=== PATIENT | male | born 1975 | race Caucasian/White ===

== ENCOUNTER 2019-02-13 21:27 | Emergency (ER) | payer OTHER ==
[2019-02-13 23:23] LABS: Absolute Lymphocytes (CBC) 0.5 K/uL (0.7-4.9); Basophils % 0.2 % (0-1.3); Eosinophils % 0.7 % (0-4.4); Hematocrit 46.2 % (39.6-49.0); MPV 7.9 fL (7.6-11.3); Monocytes % 5.9 % (3.3-12.3); RBC Red Blood Cell Count 5.14 M/uL (4.33-5.43)
[2019-02-13] MEDS ORDERED: ONDANSETRON 4 MG/2 ML VIAL ONE (23:37)
[2019-02-13] MEDS ORDERED: MAGNE/ALUM HYDROXD 30 ML UCUP ONE (23:37)
[2019-02-13] MEDS ORDERED: LIDOCAINE VISCOUS 2% SOLN 15 ML UDC ONE (23:37)
[2019-02-13 23:39] LABS: ALT/SGPT 44 U/L (12-78); AST/SGOT 25 U/L (15-37); Alkaline Phosphatase 143 U/L (45-117); BUN Blood Urea Nitrogen 15 mg/dL (7-18); Bicarbonate 27 mmol/L (21-32); Bilirubin Direct 0.2 mg/dL (0-0.2); Bilirubin Total 0.6 mg/dL (0.2-1.0); Glucose Level 102 mg/dL (74-106); Lipase 124 U/L (73-393); Potassium 3.9 mmol/L (3.5-5.1); Protein, Total 7.2 g/dL (6.4-8.2); Sodium Level 138 mmol/L (136-145); Troponin (Emerg Dept Use Only) < 0.02 ng/mL (0.0-0.045)
[2019-02-14 00:12] LABS: Blood Morphology Comment NOT SEEN (NOT SEEN); Platelet Estimate ADEQ
[2019-02-14] MEDS ORDERED: FAMOTIDINE 20 MG/2 ML VIAL IV ONE (01:01)
--- NOTE | 2019-02-14 01:30 | ER ---
Nurse's Notes [facility] Name: Calvin Carvalho Age: 43 yrs Sex: Male : 1975 Arrival Date: 02/13/2019 Time: 21:30 Bed 26 Private MD: Diagnosis: Unspecified abdominal pain;Fatty (change of) liver, not elsewhere classified Presentation: 02/13 21:38 Presenting complaint: Patient states: Heart burn that began about 1600 today; Complaint lp1 of nausea, headache; States he has "flare-ups like this". Transition of care: patient was not received from another setting of care. Onset of symptoms was February 13, 2019 at 16:00. Risk Assessment: Do you want to hurt yourself or someone else? Patient reports no desire to harm self or others. Initial Sepsis Screen: Does the patient meet any 2 criteria? No. Patient's initial sepsis screen is negative. Does the patient have a suspected source of infection? No. Patient's initial sepsis screen is negative. Care prior to arrival: None. 21:38 Method Of Arrival: Ambulatory lp1 21:38 Acuity: VIRAJ 3 lp1 Triage Assessment: 21:44 General: Appears uncomfortable, Behavior is appropriate for age. Pain: Complains of lp1 pain in epigastric area Pain currently is 6 out of 10 on a pain scale. Quality of pain is described as burning. GI: Reports nausea. Historical: - Allergies: 21:41 No Known Allergies; lp1 - Home Meds: 21:41 None [Active]; lp1 - PMHx: 21:41 None; lp1 - PSHx: 21:41 None; lp1 - Immunization history:: Adult Immunizations up to date. - Social history:: Smoking status: Patient/guardian denies using tobacco. - Ebola Screening: : No symptoms or risks identified at this time. Screenin:44 Abuse screen: Denies threats or abuse. Denies injuries from another. Nutritional lp1 screening: No deficits noted. Tuberculosis screening: No symptoms or risk factors identified. Fall Risk None identified. Assessment: 23:29 General: Appears in no apparent distress. comfortable, Behavior is calm, cooperative. mg2 Pain: Complains of pain in abdomen and epigastric area Pain does not radiate. Pain currently is 8 out of 10 on a pain scale. Quality of pain is described as aching, Pain began gradually. Neuro: Level of Consciousness is awake, alert, obeys commands, Oriented to person, place, time, situation. Cardiovascular: Capillary refill < 3 seconds Patient's skin is warm and dry. Respiratory: Airway is patent Respiratory effort is even, unlabored, Respiratory pattern is regular, symmetrical. GI: Bowel sounds present X 4 quads. Abd is soft and non tender. GI: Reports lower abdominal pain, upper abdominal pain, epigastric pain, nausea. : No signs and/or symptoms were reported regarding the genitourinary system. EENT: No signs and/or symptoms were reported regarding the EENT system. Derm: Skin is intact, is healthy with good turgor, Skin is pink, warm \\T\\ dry. normal. Musculoskeletal: Circulation, motion, and sensation intact. Capillary refill < 3 seconds. 02/14 00:48 Reassessment: abdominal pain reported. provider informed and ordered meds. mg2 01:45 Reassessment: Patient appears in no apparent distress at this time. Patient is alert, lp1 oriented x 3, equal unlabored respirations, skin warm/dry/pink. Patient states feeling better. Patient states symptoms have improved. Vital Signs: 02/13 21:41 BP 115 / 72; Pulse 112; Resp 18; Temp 99.1(O); Pulse Ox 98% on R/A; Weight 113.4 kg lp1 (R); Height 6 ft. 4 in. (193.04 cm); Pain 6/10; 22:55 BP 125 / 76 LA (auto/lg); Pulse 100; Temp 98.7; Pulse Ox 97% on R/A; Pain 7/10; jp3 23:33 BP 126 / 80; Pulse 98; Resp 18; Temp 99.4; Pulse Ox 100% on R/A; mg2 02/14 00:24 BP 130 / 78; Pulse 95; Resp 17; Temp 98.5; Pulse Ox 97% on R/A; Pain 4/10; mg2 01:45 BP 117 / 66; Pulse 81; Resp 18; Pulse Ox 97% on R/A; Pain 3/10; lp1 02/13 21:41 Body Mass Index 30.43 (113.40 kg, 193.04 cm) lp1 ED Course: 02/13 21:30 Patient arrived in ED. es 21:41 Triage completed. lp1 21:41 Arm band placed on right wrist. lp1 22:25 [facility] How[facility] 22:25 Kevin Lipscomb MD is Attending Physician. [facility] 22:28 Eric Mckeon, RN is Primary Nurse. mg2 22:56 Bed in low position. Call light in reach. Pillow given. Verbal reassurance given. jp3 23:16 No provider procedures requiring assistance completed. Inserted saline lock: 20 gauge lp1 in right antecubital area, using aseptic technique. Blood collected. 23:45 Radiology exam delayed due to lab results not completed at this time. (BUN/Creatinine). 02/14 00:[address] via wheelchair. 00:09 CT completed. Patient tolerated procedure well. 00:14 Patient moved back from CT. 00:40 CT Abd/Pelvis - IV Contrast Only In Process Unspecified. EDMS 01:29 Larry Mckeon MD is Referral Physician. [facility] 01:45 IV discontinued, No redness/swelling at site. Pressure dressing applied. lp1 Administered Medications: 02/13 23:29 Drug: Zofran 4 mg Route: IVP; Site: right antecubital; mg2 23:55 Follow up: Response: No adverse reaction; Marked relief of symptoms mg2 23:29 Drug: GI Cocktail without - (Maalox Suspension 30 ml, Lidocaine Liquid 2 % 15 mg2 ml) Route: PO; 23:55 Follow up: Response: No adverse reaction; Marked relief of symptoms mg2 02/14 00:47 Drug: Pepcid 20 mg Route: IVP; Site: right antecubital; mg2 01:46 Follow up: Response: Marked relief of symptoms lp1 Outcome: :29 Discharge ordered by . [facility] 01:46 Discharged to home ambulatory. lp1 01:46 Condition: good 01:46 Discharge instructions given to patient, Instructed on discharge instructions, follow up and referral plans. medication usage, Demonstrated understanding of instructions, follow-up care, medications, Prescriptions given X 1. 01:46 Patient left the ED. lp1 Signatures: Dispatcher [employer] EDMS Jan Howell PA PA [facility] Fariba Murray Guillermo Mcleod Cinthia Barnett, RN RN lp1 Eric Mckeon, RN RN mg2 Zen Burgos jp3 Corrections: (The following items were deleted from the chart) 00:48 00:24 BP 130 / 78; Pulse 95bpm; Resp 8bpm; Pulse Ox 97% RA; Temp 98.5F; Pain 4/10; mg2 mg2
--- NOTE | 2019-02-14 01:31 | EDPHYS ---
Physician Documentation [facility] Name: Calvin Carvalho Age: 43 yrs Sex: Male : 1975 Arrival Date: 02/13/2019 Time: 21:30 Bed 26 Private MD: ED Physician Kevin Lipscomb HPI: 02/13 22:58 This 43 yrs old Male presents to ER via Ambulatory with complaints of jmm Abdominal Problem, Nausea. 22:58 The patient presents with abdominal pain in the epigastric area. Onset: The jmm symptoms/episode began/occurred gradually, today. The symptoms do not radiate. Associated signs and symptoms: Pertinent positives: nausea, Pertinent negatives: nausea and vomiting, diarrhea. The symptoms are described as achy, sharp, waxing/waning. The patient has experienced a previous episode. This is a 43 year old male with a history of reflux that presents to the ED with complaints of epigastric pain and heartburn beginning today. patient denies diarrhea or vomiting. Denies chest pain or shortness of breath. . Historical: - Allergies: 21:41 No Known Allergies; lp1 - Home Meds: 21:41 None [Active]; lp1 - PMHx: 21:41 None; lp1 - PSHx: 21:41 None; lp1 - Immunization history:: Adult Immunizations up to date. - Social history:: Smoking status: Patient/guardian denies using tobacco. - Ebola Screening: : No symptoms or risks identified at this time. ROS: 22:58 Constitutional: Negative for fever, chills, and weight loss, Cardiovascular: Negative jmm for chest pain, palpitations, and edema, Respiratory: Negative for shortness of breath, cough, wheezing, and pleuritic chest pain. 22:58 Abdomen/GI: Positive for abdominal pain, nausea. 22:58 All other systems are negative. Exam: 22:58 Constitutional: This is a well developed, well nourished patient who is awake, alert, jmm and in no acute distress. Head/Face: atraumatic. Eyes: EOMI, no conjunctival erythema appreciated ENT: Moist Mucus Membranes Neck: Trachea midline, Supple Chest/axilla: Normal chest wall appearance and motion. 22:58 Back: Normal ROM Skin: General appearance color normal MS/ Extremity: Moves all extremities, no obvious deformities appreciated, no edema noted to the lower extremities Neuro: Awake and alert, normal gait Psych: Behavior is normal, Mood is normal, Patient is cooperative and pleasant 22:58 Cardiovascular: Rate: normal, Rhythm: regular. 22:58 Respiratory: the patient does not display signs of respiratory distress, Respirations: normal, Breath sounds: 22:58 Abdomen/GI: Inspection: abdomen appears normal, Bowel sounds: normal, Palpation: soft, mild abdominal tenderness, in the right upper quadrant and left upper quadrant. Vital Signs: 21:41 BP 115 / 72; Pulse 112; Resp 18; Temp 99.1(O); Pulse Ox 98% on R/A; Weight 113.4 kg lp1 (R); Height 6 ft. 4 in. (193.04 cm); Pain 6/10; 22:55 BP 125 / 76 LA (auto/lg); Pulse 100; Temp 98.7; Pulse Ox 97% on R/A; Pain 7/10; jp3 23:33 BP 126 / 80; Pulse 98; Resp 18; Temp 99.4; Pulse Ox 100% on R/A; mg2 02/14 00:24 BP 130 / 78; Pulse 95; Resp 17; Temp 98.5; Pulse Ox 97% on R/A; Pain 4/10; mg2 01:45 BP 117 / 66; Pulse 81; Resp 18; Pulse Ox 97% on R/A; Pain 3/10; lp1 02/13 21:41 Body Mass Index 30.43 (113.40 kg, 193.04 cm) lp1 MDM: 02/13 22:58 Patient medically screened. [facility] 02/14 01:28 Data reviewed: vital signs, nurses notes. Counseling: I had a detailed discussion with [facility] the patient and/or guardian regarding: the historical points, exam findings, and any diagnostic results supporting the discharge/admit diagnosis, lab results, radiology results, the need for outpatient follow up, to return to the emergency department if symptoms worsen or persist or if there are any questions or concerns that arise at home. 01:28 ED course: Patient is advised to follow up with GI for further evaluation. Patient is [facility] advised to return to the ED if symptoms worsen. patient understood and agrees with the plan of care. . 02/13 23:03 Order name: Basic Metabolic Panel; Complete Time: 23:50 [facility] 02/13 23:03 Order name: CBC with Diff; Complete Time: 00:20 [facility] 02/13 23:03 Order name: Creatinine for Radiology; Complete Time: 23:35 [facility] 02/13 23:03 Order name: CT Abd/Pelvis - IV Contrast Only; Complete Time: 01:28 [facility] 02/13 23:23 Order name: Liver (Hepatic) Function; Complete Time: 23:50 EDMS 02/13 23:23 Order name: Troponin (Emerg Dept Use Only); Complete Time: 23:50 EDMS 02/13 23:23 Order name: Lipase; Complete Time: 23:50 EDMS 02/13 23:31 Order name: Manual Differential; Complete Time: 00:20 [facility] 02/14 00:46 Order name: Urine Dipstick--Ancillary (enter results); Complete Time: 01:28 2 02/13 23:03 Order name: IV Saline Lock; Complete Time: 23:18 [facility] 02/13 23:03 Order name: Labs collected and sent; Complete Time: 23:18 [facility] 02/13 23:03 Order name: EKG - Nurse/Tech; Complete Time: 23:18 [facility] Administered Medications: 02/13 23:29 Drug: Zofran 4 mg Route: IVP; Site: right antecubital; mg2 23:55 Follow up: Response: No adverse reaction; Marked relief of symptoms mg2 23:29 Drug: GI Cocktail without - (Maalox Suspension 30 ml, Lidocaine Liquid 2 % 15 mg2 ml) Route: PO; 23:55 Follow up: Response: No adverse reaction; Marked relief of symptoms mg2 02/14 00:47 Drug: Pepcid 20 mg Route: IVP; Site: right antecubital; mg2 01:46 Follow up: Response: Marked relief of symptoms lp1 Disposition: 02:46 Co-signature as Attending Physician, Kevin Lipscomb MD. gs Disposition: 02/14/19 01:29 Discharged to Home. Impression: Unspecified abdominal pain, Fatty (change of) liver, not elsewhere classified. - Condition is Stable. - Discharge Instructions: Abdominal Pain, Adult, Nonalcoholic Fatty Liver Disease Diet. - Prescriptions for Carafate 1 gram Oral Tablet - take 1 tablet by ORAL route 4 times per day take on an empty stomach, beginning on waking and last dose at bedtime; 100 tablet. - Medication Reconciliation Form, Thank You Letter, Antibiotic Education, Prescription Opioid Use form. - Follow up: Larry Mckeon MD; When: 2 - 3 days; Reason: Recheck today's complaints, Continuance of care, Re-evaluation by your physician. Signatures: Dispatcher [employer] [facility] Jan Howell PA PA jmm Pena, Laura, RN RN lp1 Kevin Lipscomb MD MD gs Eric Mckeon RN RN mg2 Corrections: (The following items were deleted from the chart) 02/13 23:22 23:06 HEPATIC FUNCTION+C.LAB.BRZ ordered. [facility] EDMN 23:22 23:06 LIPASE+C.LAB.BRZ ordered. [facility] 23:22 23:06 TROPONIN (EMERG DEPT USE ONLY)+C.LAB.BRZ ordered. [facility] 02/14 01:46 01:29 02/14/2019 01:29 Discharged to Home. Impression: Unspecified abdominal pain; lp1 Fatty (change of) liver, not elsewhere classified. Condition is Stable. Forms are Medication Reconciliation Form, Thank You Letter, Antibiotic Education, Prescription Opioid Use. Follow up: Larry Mckeon; When: 2 - 3 days; Reason: Recheck today's complaints, Continuance of care, Re-evaluation by your physician. alexandrea
[2019-02-14 01:37] LABS: Urine Blood NEGATIVE (NEG); Urine Glucose NEGATIVE (NEG); Urine Protein NEGATIVE (NEG); Urine Specific Gravity 1.015 (1.005-1.030); Urine pH 6.5 (5.0-7.0)
[2019-02-14 02:16] VITALS: TEMP 98.5; O2SAT 97
[2019-02-14 02:18] VITALS: BP 117/66
--- NOTE | 2019-02-14 07:54 | EKG ---
Test Date: 2019-02-13 Test Time: 23:18:36 Candy Spreader: CRUZ MEASUREMENT RESULTS: Intervals: Rate: 90 MI: 160 QRSD: 110 QT: 366 QTc: 447 [place]: P: 45 MI: 160 QRS: -29 T: 25 INTERPRETIVE STATEMENTS: Normal sinus rhythm Incomplete right bundle branch block Borderline ECG No previous ECG available for comparison Electronically Signed On 02-14-19 07:53:43 CDT by Fareed Domínguez
--- NOTE | 2019-02-14 11:39 | RAD REPORT ---
EXAM DESCRIPTION: CT Abdomen and Pelvis With Intravenous Contrast CLINICAL HISTORY: The patient is 43 years old and is Male; abdominal pain TECHNIQUE: Axial computed tomography images of the abdomen and pelvis with intravenous contrast. S agittal and coronal reformatted images were created and reviewed. This CT exam was performed using one or more of the following dose reduction techniques: automated exposure control, adjustment of t he mA and/or kV according to patient size, and/or use of iterative reconstruction technique. COMPARISON: No relevant prior studies available. FINDINGS: LUNG BASES: Unremarkable. No mass. No consolidation. ABDOMEN: LIVER: There is a diffuse decrease in hepatic parenchymal density, consistent with fatty infiltr ation. The liver is enlarged. GALLBLADDER AND BILE DUCTS: No calcified stones. No ductal dilation. PANCREAS: No ductal dilation. No mass. SPLEEN: Unremarkable. ADRENALS: Unremarkable. No mass. KIDNEYS AND URETERS: Unremarkable. No solid mass. No hydronephrosis. STOMACH AND BOWEL: The stomach is distended with fluid and minimal air. The small bowel is relat ively normal in caliber. A few small bowel loops are fluid-filled. Stool is present throughout the co luna. There is no mucosal thickening or evidence of bowel obstruction. PELVIS: APPENDIX: The appendix is normal in caliber without surrounding inflammation. BLADDER: Unremarkable. No mass. REPRODUCTIVE: Unremarkable as visualized. ABDOMEN and PELVIS: INTRAPERITONEAL SPACE: Unremarkable. No free air. No significant fluid collection. BONES/JOINTS: Minimal degenerative change of the lower lumbar spine is present. SOFT TISSUES: There are small bilateral fat containing inguinal hernias. A small fat-containin g umbilical hernia is present. VASCULATURE: Unremarkable. No abdominal aortic aneurysm. LYMPH NODES: Unremarkable. No enlarged lymph nodes. IMPRESSION: No acute findings on this contrasted CT of the abdomen and pelvis to explain the patient 's symptoms. Electronically signed by: Nadia Rey MD 02/14/2019 12:47 AM CDT Due to temporary technical issues with the PACS/Fluency reporting system, reports are being signed by the in house radiologist as a courtesy to ensure prompt reporting. The interpreting radiologist is f ully responsible for the content of the report.
== END 2019-02-14 01:46 | disposition home or self-care (01) ==
LOC: ER 21:27
DX: K76.0 Fatty (change of) liver, not elsewhere classified (principal)
CPT/HCPCS: 36415; 74177; 80048; 80076; 81003; 83690; 84484; 85025; 93005; 96374; 96375; 99284; J2405; Q9967

== ENCOUNTER 2023-04-05 12:31 | Emergency (ER) | payer OTHER, SELFPAY ==
[2023-04-05 13:27] LABS: Absolute Lymphocytes (CBC) 1.4 K/uL (0.7-4.9); Hematocrit 44.3 % (39.6-49.0); Lymphocytes % 24.9 % (15.3-44.8); MCV 87.7 fL (80-100); MPV 7.4 fL (7.6-11.3); Platelets 275 thou/uL (152-406); RBC Red Blood Cell Count 5.05 M/uL (4.33-5.43)
[2023-04-05 13:40] LABS: Protime INR 0.99
--- NOTE | 2023-04-05 13:46 | RAD REPORT ---
EXAM DESCRIPTION: Afsaneh Single View04/05/2023 1:33 pm CLINICAL HISTORY: CHEST PAIN COMPARISON: No comparisons TECHNIQUE: Portable AP view of the chest. FINDINGS: The lungs are clear. No pneumothorax or effusion. The cardiomediastinal contours are unrem arkable. IMPRESSION: No acute cardiopulmonary process.
[2023-04-05 13:47] LABS: Albumin 3.8 g/dL (3.4-5.0); Bilirubin Direct 0.1 mg/dL (0-0.2); Bilirubin Indirect, Calculated 0.4 mg/dL (0.2-0.8); Bilirubin Total 0.5 mg/dL (0.2-1.0); Magnesium 2.2 mg/dL (1.6-2.4); Potassium 3.7 mEq/L (3.5-5.1); Protein, Total 7.2 g/dL (6.4-8.2); Troponin High Sensitivity 3.2 pg/mL (<58.9)
[2023-04-05] MEDS ORDERED: PANTOPRAZOLE 40 MG INJ ONE (14:55)
[2023-04-05] MEDS ORDERED: SUCRALFATE 1 GM TABLET ONE (14:56)
--- NOTE | 2023-04-05 16:45 | EDPHYS ---
Physician Documentation [facility] Name: Calvin Carvalho Age: 47 yrs Sex: Male : 1975 Arrival Date: 04/05/2023 Time: 12:31 Bed 12 Private MD: Larry Contreras E ED Physician Andrea Barraza HPI: 04/05 13:20 This 47 yrs old Male presents to ER via Ambulatory with complaints of Chest Pain. snw 13:20 The patient or guardian reports chest pain that is located primarily in the substernal snw area. Onset: suddenly, this morning. The pain does not radiate. Associated signs and symptoms: Pertinent positives: None. The chest pain is described as sharp. Severity of pain: At its worst the pain was moderate severe. The patient has not experienced similar symptoms in the past. It is unknown whether or not the patient has recently seen a physician. c/o a lot of stress. Historical: - Allergies: 12:40 No Known Allergies; bp - Immunization history:: Adult Immunizations up to date. - Social history:: Smoking status: Patient denies any tobacco usage or history of. ROS: 13:20 Constitutional: Negative for fever, chills, and weight loss, Eyes: Negative for injury, snw pain, redness, and discharge, ENT: Negative for injury, pain, and discharge, Neck: Negative for injury, pain, and swelling, Respiratory: Negative for shortness of breath, cough, wheezing, and pleuritic chest pain, Abdomen/GI: Negative for abdominal pain, nausea, vomiting, diarrhea, and constipation, Back: Negative for injury and pain, : Negative for injury, bleeding, discharge, and swelling, MS/Extremity: Negative for injury and deformity, Skin: Negative for injury, rash, and discoloration, Neuro: Negative for headache, weakness, numbness, tingling, and seizure, Psych: Negative for depression, anxiety, suicide ideation, homicidal ideation, and hallucinations. 13:20 Cardiovascular: Positive for chest pain, of the chest, sharp in nature. Exam: 16:46 Constitutional: This is a well developed, well nourished patient who is awake, alert, snw and in no acute distress. Head/Face: Normocephalic, atraumatic. Eyes: Pupils equal round and reactive to light, extra-ocular motions intact. Lids and lashes normal. Conjunctiva and sclera are non-icteric and not injected. Cornea within normal limits. Periorbital areas with no swelling, redness, or edema. ENT: Nares patent. No nasal discharge, no septal abnormalities noted. Tympanic membranes are normal and external auditory canals are clear. Oropharynx with no redness, swelling, or masses, exudates, or evidence of obstruction, uvula midline. Mucous membranes moist. Neck: Trachea midline, no thyromegaly or masses palpated, and no cervical lymphadenopathy. Supple, full range of motion without nuchal rigidity, or vertebral point tenderness. No Meningismus. Chest/axilla: Normal chest wall appearance and motion. Nontender with no deformity. No lesions are appreciated. Cardiovascular: Regular rate and rhythm with a normal S1 and S2. No gallops, murmurs, or rubs. Normal PMI, no JVD. No pulse deficits. Respiratory: Lungs have equal breath sounds bilaterally, clear to auscultation and percussion. No rales, rhonchi or wheezes noted. No increased work of breathing, no retractions or nasal flaring. Abdomen/GI: Soft, non-tender, with normal bowel sounds. No distension or tympany. No guarding or rebound. No evidence of tenderness throughout. Back: No spinal tenderness. No costovertebral tenderness. Full range of motion. Skin: Warm, dry with normal turgor. Normal color with no rashes, no lesions, and no evidence of cellulitis. MS/ Extremity: Pulses equal, no cyanosis. Neurovascular intact. Full, normal range of motion. Neuro: Awake and alert, GCS 15, oriented to person, place, time, and situation. Cranial nerves II-XII grossly intact. Motor strength 5/5 in all extremities. Sensory grossly intact. Cerebellar exam normal. Normal gait. Psych: Awake, alert, with orientation to person, place and time. Behavior, mood, and affect are within normal limits. Vital Signs: 12:39 BP 143 / 99; Pulse 88; Resp 16; Temp 98; Pulse Ox 100% ; Weight 113.4 kg; Height 6 ft. bp 3 in. ; 14:55 BP 141 / 83; Pulse 72; Resp 18; Pulse Ox 100% on R/A; Pain 0/10; cm10 15:00 BP 125 / 82; Pulse 94; Resp 18; Pulse Ox 99% on R/A; cm10 15:30 BP 131 / 83; Pulse 98; Resp 16; Pulse Ox 98% on R/A; cm10 16:30 BP 137 / 89; Pulse 95; Resp 18; Pulse Ox 98% on R/A; cm10 12:39 Body Mass Index 31.25 (113.40 kg, 190.5 cm) bp 14:55 Pain Scale: Adult cm10 MDM: 12:35 Patient medically screened. snw 13:21 Differential diagnosis: abnormal EKG, costochondritis, esophagitis, gastritis, snw gastroesophageal reflux disease (GERD), stable angina. HEART Score: History: Slightly Suspicious (0), ECG: Normal (0), Age: > 45 and < 65 years (1), Risk Factors: No Risk Factors Known (0), Troponin:. The patient was not given aspirin in the Emergency Department. Patient reports taking aspirin within the past 24 hours. Data reviewed: vital signs, nurses notes, lab test result(s), EKG, radiologic studies. 04/05 12:35 Order name: Basic Metabolic Panel; Complete Time: 14:23 snw 04/05 12:35 Order name: CBC with Diff; Complete Time: 13:38 snw 04/05 12:35 Order name: LFT's; Complete Time: 14:23 snw 04/05 12:35 Order name: Magnesium; Complete Time: 14:23 snw 04/05 12:35 Order name: NT PRO-BNP; Complete Time: 14:23 snw 04/05 12:35 Order name: PT-INR; Complete Time: 13:41 snw 04/05 12:35 Order name: Troponin HS; Complete Time: 14:23 snw 04/05 14:24 Order name: Troponin High Sensitivity: draw at 1530; Complete Time: 16:44 snw 04/05 12:35 Order name: XRAY Chest (1 view); Complete Time: 14:23 snw 04/05 12:35 Order name: EKG; Complete Time: 12:36 snw 04/05 14:24 Order name: EKG: at 1530; Complete Time: 14:24 snw 04/05 12:35 Order name: Cardiac monitoring; Complete Time: 12:50 snw 04/05 12:35 Order name: EKG - Nurse/Tech; Complete Time: 12:50 snw 04/05 12:35 Order name: IV Saline Lock; Complete Time: 13:20 snw 04/05 12:35 Order name: Labs collected and sent; Complete Time: 13:20 snw 04/05 12:35 Order name: O2 Per Protocol; Complete Time: 12:50 snw 04/05 12:35 Order name: O2 Sat Monitoring; Complete Time: 12:50 snw 04/05 14:24 Order name: EKG - Nurse/Tech; Complete Time: 15:43 snw EC:50 Rate is 70 beats/min. Rhythm is regular. QRS [place] is Normal. ID interval is normal. QRS snw interval is normal. QT interval is normal. Clinical impression: NSR w/ Non-specific ST/T Changes. Administered Medications: 13:23 CANCELLED (TAKEN AT HOME): Aspirin PO Chewable Tablet 324 mg PO once; 81 mg tablets x 4 bp 14:53 Drug: Pantoprazole IVP 40 mg Route: IVP; Site: right antecubital; cm10 16:37 Follow up: Response: No adverse reaction cm10 14:53 Drug: Sucralfate PO 1 grams Route: PO; cm10 16:37 Follow up: Response: No adverse reaction cm10 Disposition: 17:45 Co-signature as Attending Physician, Andrea Barraza MD I reviewed the patient's care rn provided by the Advanced Practice Provider and agree with the diagnosis and treatment plan. Disposition Summary: 04/05/23 16:44 Discharge Ordered Location: Home snw Condition: Stable snw Diagnosis - Chest pain, unspecified snw - Esophagitis, unspecified snw Followup: snw - With: Larry Contreras MD - When: 2 - 3 days - Reason: Recheck today's complaints, Continuance of care, Re-evaluation by your physician Followup: snw - With: Calin Paz MD - When: 7 - 10 days - Reason: Recheck today's complaints, Continuance of care Discharge Instructions: - Discharge Summary Sheet snw - Nonspecific Chest Pain, Adult snw - Nonstress Test snw - How to Take Your Blood Pressure, [id number]-[id number] snw - Aspirin and Your Heart snw - Exercise Stress Echocardiogram snw - Form - Blood Pressure Record Sheet snw - Managing Stress, Adult snw Forms: - Work release form snw - Medication Reconciliation Form snw - Thank You Letter snw - Antibiotic Education snw - Prescription Opioid Use snw - Patient Portal Instructions snw Prescriptions: - Pepcid 20 mg Oral Tablet - take 1 tablet by ORAL route once daily; 20 tablet; Refills: 0, Product snw Selection Permitted Signatures: Dispatcher [employer] EDRosa Andino, MANAGER WEALTH MANAGEMENT-C MANAGER WEALTH MANAGEMENT-Csnw Andrea Barraza MD MD rn Peltier, Brian RN RN Eda Nicole RN RN cm10 Corrections: (The following items were deleted from the chart) 13:23 12:35 Aspirin PO Chewable Tablet 324 mg PO once; 81 mg tablets x 4 ordered. snw bp
--- NOTE | 2023-04-05 16:45 | ER ---
Nurse's Notes [facility] Name: Calvin Carvalho Age: 47 yrs Sex: Male : 1975 Arrival Date: 04/05/2023 Time: 12:31 Bed 12 Private MD: Larry Contreras E Diagnosis: Chest pain, unspecified;Esophagitis, unspecified Presentation: 04/05 12:39 Chief complaint: Patient states: LEFT SIDED CHEST PAIN, "A LOT OF STRESS". Coronavirus bp screen: At this time, the client does not indicate any symptoms associated with coronavirus-19. Ebola Screen: No symptoms or risks identified at this time. Initial Sepsis Screen: Does the patient meet any 2 criteria? No. Patient's initial sepsis screen is negative. Does the patient have a suspected source of infection? No. Patient's initial sepsis screen is negative. Risk Assessment: Do you want to hurt yourself or someone else? Patient reports no desire to harm self or others. Onset of symptoms was April 05, 2023. 12:39 Method Of Arrival: Ambulatory bp 12:39 Acuity: VIRAJ 3 bp Historical: - Allergies: 12:40 No Known Allergies; bp - Immunization history:: Adult Immunizations up to date. - Social history:: Smoking status: Patient denies any tobacco usage or history of. Screenin:56 [facility] ED Fall Risk Assessment (Adult) History of falling in the last 3 months, cm10 including since admission No falls in past 3 months (0 pts) Confusion or Disorientation No (0 pts) Intoxicated or Sedated No (0 pts) Impaired Gait No (0 pts) Mobility Assist Device Used No (0 pt) Altered Elimination No (0 pt) Score/Fall Risk Level 0 - 2 = Low Risk Oriented to surroundings, Maintained a safe environment, Provided non-skid footwear. Abuse screen: Denies threats or abuse. Denies injuries from another. Nutritional screening: No deficits noted. Tuberculosis screening: No symptoms or risk factors identified. Assessment: 14:55 General: Appears in no apparent distress. comfortable, Behavior is calm, cooperative. cm10 Pain: Denies pain. Pain does not radiate. Pain began suddenly. Neuro: No deficits noted. Level of Consciousness is awake, alert, obeys commands, Oriented to person, place, time, situation. Cardiovascular: No deficits noted. Capillary refill < 3 seconds. Respiratory: No deficits noted. Airway is patent Respiratory effort is even, unlabored, Respiratory pattern is regular, symmetrical. 16:21 Reassessment: No changes from previously documented assessment. Patient and/or family cm10 updated on plan of care and expected duration. Pain level reassessed. Patient is alert, oriented x 3, equal unlabored respirations, skin warm/dry/pink. Vital Signs: 12:39 BP 143 / 99; Pulse 88; Resp 16; Temp 98; Pulse Ox 100% ; Weight 113.4 kg; Height 6 ft. bp 3 in. ; 14:55 BP 141 / 83; Pulse 72; Resp 18; Pulse Ox 100% on R/A; Pain 0/10; cm10 15:00 BP 125 / 82; Pulse 94; Resp 18; Pulse Ox 99% on R/A; cm10 15:30 BP 131 / 83; Pulse 98; Resp 16; Pulse Ox 98% on R/A; cm10 16:30 BP 137 / 89; Pulse 95; Resp 18; Pulse Ox 98% on R/A; cm10 12:39 Body Mass Index 31.25 (113.40 kg, 190.5 cm) bp 14:55 Pain Scale: Adult cm10 ED Course: 12:34 Patient arrived in ED. rg4 12:34 Jarrod Nowak MD is Private Physician. rg4 12:34 Larry Contreras MD is Private Physician. rg4 12:35 Rosa [facility]C [facility]. snw 12:35 Andrea Barraza MD is Attending Physician. snw 12:40 Triage completed. bp 12:40 Arm band placed on. bp 13:20 Basic Metabolic Panel Sent. bc6 13:20 CBC with Diff Sent. bc6 13:20 LFT's Sent. bc6 13:20 Magnesium Sent. bc6 13:20 PT-INR Sent. bc6 13:20 Troponin HS Sent. bc6 13:20 Inserted saline lock: 20 gauge in right antecubital area, using aseptic technique. bc6 Blood collected. 13:35 XRAY Chest (1 view) In Process Unspecified. EDMS 14:56 Patient has correct armband on for positive identification. Bed in low position. Call cm10 light in reach. Side rails up X2. Provided Education on: N/A. Client placed on continuous cardiac and pulse oximetry monitoring. NIBP monitoring applied. 15:43 Eda Rodriguez, RN is Primary Nurse. cm10 15:43 Troponin High Sensitivity: draw at 1530 Sent. cm10 16:44 Larry Contreras MD is Referral Physician. snw 16:44 Calin Paz MD is Referral Physician. snw 16:59 No provider procedures requiring assistance completed. IV discontinued, intact, cm10 bleeding controlled, No redness/swelling at site. Pressure dressing applied. 16:59 Patient maintains SpO2 saturation greater than 95% on room air. cm10 Administered Medications: 13:23 CANCELLED (TAKEN AT HOME): Aspirin PO Chewable Tablet 324 mg PO once; 81 mg tablets x 4 bp 14:53 Drug: Pantoprazole IVP 40 mg Route: IVP; Site: right antecubital; cm10 16:37 Follow up: Response: No adverse reaction cm10 14:53 Drug: Sucralfate PO 1 grams Route: PO; cm10 16:37 Follow up: Response: No adverse reaction cm10 Medication: 16:59 VIS not applicable for this client. cm10 Outcome: 16:44 Discharge ordered by . snw 16:59 Discharged to home ambulatory, with family. cm10 16:59 Condition: good 16:59 Discharge instructions given to patient, Instructed on discharge instructions, follow up and referral plans. medication usage, Demonstrated understanding of instructions, follow-up care, medications, Prescriptions given X 1. 16:59 Patient left the ED. cm10 Signatures: Dispatcher [employer] EDMS Rosa Garcia, DOREEN-C [employer] [facility]-CsnKerri Urbina rg4 Trent Medina, RN RN bp Marielena Thakkar bc6 Eda Rodriguez, RN RN cm10
[2023-04-05 17:21] VITALS: TEMP 98
[2023-04-05 17:33] VITALS: O2SAT 98
[2023-04-05 17:34] VITALS: BP 137/89
--- NOTE | 2023-04-06 18:08 | EKG ---
Test Date: 2023-04-05 Test Time: 15:38:00 Pilot Captain: ELIAS MEASUREMENT RESULTS: Intervals: Rate: 77 MT: 136 QRSD: 108 QT: 412 QTc: 466 [place]: P: 53 MT: 136 QRS: -3 T: -9 INTERPRETIVE STATEMENTS: Normal sinus rhythm Incomplete right bundle branch block Inferior infarct, age undetermined Abnormal ECG Compared to ECG 04/05/2023 12:46:30 Incomplete right bundle-branch block now present Myocardial infarct finding now present Electronically Signed On 04-06-23 18:07:22 CDT by Calin Paz
--- NOTE | 2023-04-06 18:10 | EKG ---
Test Date: 2023-04-05 Test Time: 12:46:30 Helmet Coverer: SEAN MEASUREMENT RESULTS: Intervals: Rate: 70 KS: 170 QRSD: 114 QT: 418 QTc: 451 [place]: P: 45 KS: 170 QRS: -7 T: 13 INTERPRETIVE STATEMENTS: Normal sinus rhythm Normal ECG Compared to ECG 02/13/2019 23:18:36 Incomplete right bundle-branch block no longer present Electronically Signed On 04-06-23 18:09:23 CDT by Calin Paz
== END 2023-04-05 16:59 | disposition home or self-care (01) ==
LOC: ER 12:31
DX: K20.90 Esophagitis, unspecified without bleeding (principal)
CPT/HCPCS: 93005 ×2; 85025; 80048; 36415; 83735; 85610; 80076; 84484 ×2; 83880; 71045; 96374; 99285; C9113

== ENCOUNTER 2024-06-07 08:41 | Inpatient (IN) | payer OTHER ==
[2024-06-07] MEDS ORDERED: ONDANSETRON 4 MG/2 ML VIAL ONE (08:56)
[2024-06-07] MEDS ORDERED: NA CHLORIDE 0.9% 1,000 ML ONE (08:57)
[2024-06-07] MEDS ORDERED: FAMOTIDINE 20 MG/2 ML VIAL IV ONE (08:57)
--- NOTE | 2024-06-07 09:38 | RAD REPORT ---
Abdomen Exam Limited: 06/07/2024 9:22 AM CLINICAL HISTORY: ABD PAIN STUDY: Limited right upper quadrant ultrasound of abdomen. COMPARISON: None. FINDINGS: Liver: No significant abnormality. Bile ducts: No intrahepatic or extrahepatic biliary dilatation. Common bile duct measures 2 mm. Gallbladder: Normal. IMPRESSION: Unremarkable exam.
[2024-06-07 10:14] LABS: Absolute Basophils 0.1 K/uL (0-0.5); Absolute Lymphocytes (CBC) 0.6 K/uL (0.7-4.9); Absolute Monocytes 1.2 K/uL (0.1-1.3); Absolute Neutrophil 16.8 K/uL (1.8-8.0); Basophils % 0.3 % (0-1.3); Hematocrit 45.4 % (39.6-49.0); Hemoglobin 15.5 g/dL (13.6-17.9); Lymphocytes % 3.2 % (15.3-44.8); MCH 29.6 pg (27.0-35.0); MCHC 34.1 g/dL (32.0-36.0); MCV 86.9 fL (80-100); MPV 7.1 fL (7.6-11.3); Monocytes % 6.5 % (3.3-12.3); Platelets 303 thou/uL (152-406); RBC Red Blood Cell Count 5.23 M/uL (4.33-5.43); Red Cell Distribution Width 13.1 % (12.1-15.2)
[2024-06-07 10:17] LABS: PT Prothrombin Time 12.2 SECONDS (9.4-12.5); Protime INR 1.09
[2024-06-07 10:32] LABS: Albumin 3.8 g/dL (3.4-5.0); Albumin/Globulin Ratio 1.1 (1.1-1.8); Anion Gap 9.6 mEq/L (5.0-15.0); Bilirubin Direct 0.3 mg/dL (0-0.2); Bilirubin Indirect, Calculated 0.6 mg/dL (0.2-0.8); Bilirubin Total 0.9 mg/dL (0.2-1.0); Globulin 3.6 g/dL (2.3-3.5); Magnesium 1.7 mg/dL (1.6-2.4); Potassium 3.6 mEq/L (3.5-5.1); Protein, Total 7.4 g/dL (6.4-8.2); Troponin High Sensitivity 3.4 pg/mL (<58.9)
--- NOTE | 2024-06-07 10:46 | RAD REPORT ---
EXAMINATION: ONE VIEW CHEST XR CLINICAL INDICATION: Male, 48 years old.ABDOMINAL DISTENTION TECHNIQUE: 1 View, AP supine, X-ray of the chest was performed. [id number]. COMPARISON: 04/05/2023 FINDINGS: Lungs and pleura: Nonspecific prominent interstitial markings and nodularity in the right midlung. No effusion. Heart and mediastinum: Normal heart size. Unremarkable mediastinal contours. Osseous structures: No acute abnormality. Tubes/lines: None Other: None. IMPRESSION: Irregular nodularity in the right midlung is new from prior. This is of uncertain etiology, possibly an acute infectious or inflammatory process. Recommend short interval follow-up chest radiograph in 4-6 weeks. Alternately, could consider further evaluation with chest CT.
[2024-06-07 10:55] LABS: Band Neutrophils 1 % (0-1); Differential Total Cells Count 100; Lymphocytes 1 % (15-42); Monocytes 6 % (0-10); Platelet Estimate ADEQ; Segmented Neutrophils 92 % (40-80)
[2024-06-07 10:56] LABS: Blood Morphology Comment NOT SEEN (NOT SEEN)
--- NOTE | 2024-06-07 11:09 | RAD REPORT ---
EXAMINATION: CT ABDOMEN AND PELVIS WITH CONTRAST CLINICAL INDICATION: Male, 48 years old.ABD PAIN TECHNIQUE: CT abdomen and pelvis was performed, after the administration of IV contrast, as per depar tment protocol. Axial, sagittal and coronal reconstructions were obtained. One or more of the following dose reduction techniques were used: Automated exposure control, adjustment of the mA and/o r kV according to patient size, and/or iterative reconstruction. Unless otherwise specified, incidental findings do not require dedicated imaging follow-up. [id number]. COMPARISON: 02/14/2019 FINDINGS: LOWER CHEST: The visualized lung bases are clear. LIVER: Normal in size and contour. No focal lesion. GALLBLADDER/BILE DUCT: No biliary ductal dilatation.? PANCREAS: No significant abnormality. SPLEEN: Normal size. No focal lesion. ADRENALS: Normal; no mass. KIDNEYS AND URETERS: Normal size and contour. No hydronephrosis. GASTROINTESTINAL TRACT: Stomach is non-dilated. Small bowel has normal course and caliber. No colonic wall thickening or pericolonic inflammatory changes. Normal appendix. PERITONEUM: No ascites. Small fat-containing inguinal hernias. Small fat-containing umbilical hernia. LYMPH NODES: No lymphadenopathy. ABDOMINAL AORTA AND OTHER VESSELS: Normal caliber aorta and IVC. URINARY BLADDER: Normal contour. REPRODUCTIVE ORGANS: No pathologic process MUSCULOSKELETAL: No acute or suspicious osseous abnormality. ADDITIONAL FINDINGS: None. IMPRESSION: No acute or significant abnormalities seen in the abdomen or pelvis.
--- NOTE | 2024-06-07 12:42 | EDPHYS ---
Physician Documentation [facility] Name: Calvin Carvalho Age: 48 yrs Sex: Male : 1975 Arrival Date: 06/07/2024 Time: 08:41 Bed 18 Private MD: JACOB Physician Martin Zimmerman HPI: 06/07 12:32 This 48 yrs old Male presents to ER via Ambulatory with complaints of radha Abdominal Pain, Vomiting, Near Syncope. 12:32 The patient presents to the emergency department with nausea, vomiting, abdominal pain, radha of the right upper quadrant, left upper quadrant, right lower quadrant and left lower quadrant. Onset: The symptoms/episode began/occurred 2 day(s) ago. Possible causes: unknown. The symptoms are aggravated by nothing. The symptoms are alleviated by nothing. Associated signs and symptoms: Pertinent positives: abdominal pain, nausea, vomiting. Severity of symptoms: At their worst the symptoms were mild moderate in the emergency department the symptoms have improved mildly. The patient has not experienced similar symptoms in the past. Historical: - Allergies: 09:00 No Known Allergies; bp - PMHx: 09:00 Anxiety; Gastric reflux; bp - Immunization history:: Adult Immunizations up to date. - Infectious Disease History:: Denies. - Social history:: Smoking status: unknown. ROS: 12:34 Eyes: Negative for injury, pain, redness, and discharge, ENT: Negative for injury, radha pain, and discharge, Neck: Negative for injury, pain, and swelling, Cardiovascular: Negative for chest pain, palpitations, and edema, Back: Negative for injury and pain, : Negative for injury, bleeding, discharge, and swelling, MS/Extremity: Negative for injury and deformity, Skin: Negative for injury, rash, and discoloration, Psych: Negative for depression, anxiety, suicide ideation, homicidal ideation, and hallucinations, Allergy/Immunology: Negative for hives, rash, and allergies, Endocrine: Negative for neck swelling, polydipsia, polyuria, polyphagia, and marked weight changes, Hematologic/Lymphatic: Negative for swollen nodes, abnormal bleeding, and unusual bruising, Exam: 12:35 Constitutional: This is a well developed, well nourished patient who is awake, alert, radha and in no acute distress. Head/Face: Normocephalic, atraumatic. Eyes: Pupils equal round and reactive to light, extra-ocular motions intact. Lids and lashes normal. Conjunctiva and sclera are non-icteric and not injected. Cornea within normal limits. Periorbital areas with no swelling, redness, or edema. ENT: Nares patent. No nasal discharge, no septal abnormalities noted. Tympanic membranes are normal and external auditory canals are clear. Oropharynx with no redness, swelling, or masses, exudates, or evidence of obstruction, uvula midline. Mucous membranes moist. Neck: Trachea midline, no thyromegaly or masses palpated, and no cervical lymphadenopathy. Supple, full range of motion without nuchal rigidity, or vertebral point tenderness. No Meningismus. Chest/axilla: Normal chest wall appearance and motion. Nontender with no deformity. No lesions are appreciated. Cardiovascular: Regular rate and rhythm with a normal S1 and S2. No gallops, murmurs, or rubs. Normal PMI, no JVD. No pulse deficits. Back: No spinal tenderness. No costovertebral tenderness. Full range of motion. Male : Normal genitalia with no discharge or lesions. Skin: Warm, dry with normal turgor. Normal color with no rashes, no lesions, and no evidence of cellulitis. MS/ Extremity: Pulses equal, no cyanosis. Neurovascular intact. Full, normal range of motion. Neuro: Awake and alert, GCS 15, oriented to person, place, time, and situation. Cranial nerves II-XII grossly intact. Motor strength 5/5 in all extremities. Sensory grossly intact. Cerebellar exam normal. Normal gait. Psych: Awake, alert, with orientation to person, place and time. Behavior, mood, and affect are within normal limits. 12:35 ECG was reviewed by the Attending Physician. 12:35 Respiratory: the patient does not display signs of respiratory distress, Respirations: normal, Breath sounds: bronchial sounds, that are moderate, are scattered, are heard in the left posterior lower lobe, Respiratory rate: 16 Vital Signs: 08:59 BP 123 / 77; Pulse 97; Resp 16; Temp 100.3; Pulse Ox 99% ; Weight 111.13 kg; Height 6 bp ft. 4 in. ; 11:30 BP 117 / 62; Pulse 78; Resp 16; Pulse Ox 98% ; bp 14:00 BP 124 / 73; Pulse 100; Resp 16; Pulse Ox 100% ; bp 16:00 BP 121 / 70; Pulse 95; Resp 16; Temp 98.2(O); Pulse Ox 98% on R/A; bp 08:59 Body Mass Index 29.82 (111.13 kg, 193.04 cm) bp MDM: 08:47 Patient medically screened. radha 12:36 Antibiotic administration: Rocephin and Zithromax given. Differential diagnosis: Anemia radha Anxiety Reaction asthma, Bronchitis CHF exacerbation, Chronic Obstructive Pulmonary Disease Nonspecific abd pain, gastritis, cholecystitis, pancreatitis, diverticulitis, viral gastroenteritis, gastroenteritis, Myocardial Infarction pneumonia. Differential Diagnosis: Obstructed Airway Bronchitis Influenza Upper Respiratory Infection Sinusitis Pharyngitis Asthma Exacerbation Viral Syndrome Pneumonia. Immunization status:. Data reviewed: vital signs, nurses notes, lab test result(s), EKG, radiologic studies, CT scan, plain films. Consideration of Admission/Observation Patient was admitted/placed on observation. Escalation of care including admission/observation considered. I considered the following discharge prescriptions or medication management in the emergency department Medications were administered in the Emergency Department. See MAR. Independent interpretation of the following test(s) in the Emergency Department EKG: See my EKG interpretation above. Test considered but Not performed: MRI: NO ABD MRI. Historians other than the Patient: PATIENT WELL INFORMED. Care significantly affected by the following chronic conditions: ANXIETY, GERD. Counseling: I had a detailed discussion with the patient and/or guardian regarding the historical points, exam findings, and any diagnostic results supporting the discharge/admit diagnosis, lab results, radiology results, the need for further work-up and treatment in the hospital. 06/07 08:49 Order name: Basic Metabolic Panel; Complete Time: 12:26 radha 06/07 08:49 Order name: CBC with Diff; Complete Time: 12:26 06/07 08:49 Order name: LFT's; Complete Time: 12:26 06/07 08:49 Order name: Magnesium; Complete Time: 12:26 radha 06/07 08:49 Order name: NT PRO-BNP; Complete Time: 12:26 radha 06/07 08:49 Order name: PT-INR; Complete Time: 12:26 06/07 08:49 Order name: Troponin HS; Complete Time: 12:26 radha 06/07 08:49 Order name: Lipase; Complete Time: 12:26 [facility] 06/07 08:49 Order name: Urinalysis w/ reflexes [facility] 06/07 10:17 Order name: Manual Differential; Complete Time: 12:26 [facility] 06/07 12:29 Order name: Blood Culture Adult (2) [facility] 06/07 12:29 Order name: Lactate w/ 2H reflex if indic.; Complete Time: 14:26 [facility] 06/07 12:29 Order name: SARS RAPID; Complete Time: 14:26 [facility] 06/07 12:29 Order name: Flu; Complete Time: 14:26 [facility] 06/07 13:53 Order name: CBC with Automated Diff [facility] 06/07 13:53 Order name: CBC with Automated Diff [facility] 06/07 13:53 Order name: CBC with Automated Diff [facility] 06/07 13:53 Order name: CBC with Automated Diff [facility]MS 06/07 13:53 Order name: Comprehensive Metabolic Panel [facility] 06/07 13:53 Order name: Comprehensive Metabolic Panel [facility]MS 06/07 13:53 Order name: Comprehensive Metabolic Panel [facility]MS 06/07 13:53 Order name: Comprehensive Metabolic Panel [facility]MS 06/07 13:53 Order name: Lipid Profile [facility]MS 06/07 13:53 Order name: Lipid Profile [facility] 06/07 13:53 Order name: Magnesium EDMS 06/07 13:53 Order name: Magnesium EDMS 06/07 13:53 Order name: Magnesium EDMS 06/07 13:53 Order name: Magnesium [facility]MS 06/07 08:49 Order name: XRAY Chest (1 view); Complete Time: 12:26 [facility] 06/07 08:49 Order name: US Abdomen Limited; Complete Time: 12:26 [facility] 06/07 08:49 Order name: CT Abd/Pelvis - IV Contrast Only; Complete Time: 12:26 [facility] 06/07 12:29 Order name: CT Chest Wo Con; Complete Time: 13:19 [facility] 06/07 12:35 Order name: CT Head Brain wo Cont; Complete Time: 13:19 [facility] 06/07 08:49 Order name: EKG; Complete Time: 08:49 [facility] 06/07 13:55 Order name: EKG Electrocardiogram [facility] 06/07 08:49 Order name: Cardiac monitoring; Complete Time: 10:02 [facility] 06/07 08:49 Order name: EKG - Nurse/Tech; Complete Time: 10:03 [facility] 06/07 08:49 Order name: IV Saline Lock; Complete Time: 10:02 [facility] 06/07 08:49 Order name: Labs collected and sent; Complete Time: [facility] 06/07 08:49 Order name: O2 Per Protocol; Complete Time: [facility] 06/07 08:49 Order name: O2 Sat Monitoring; Complete Time: [facility] EC:35 Rate is 112 beats/min. Rhythm is regular. QRS [place] is Normal. [place] interval is normal. QT radha interval is normal. No Q waves. T waves are Normal. No ST changes noted. Clinical impression: Sinus tachycardia and No evidence of ischemia. Interpreted by me. Reviewed by me. Administered Medications: 10: Drug: NS 0.9% IV 1000 ml IV at 1 bolus Per protocol; 1000 mL bolus Route: IV; Rate: 1 bp bolus; Site: right antecubital; 11:30 Follow up: IV Status: Completed infusion iw 10:02 Drug: Famotidine IVP 20 mg IVP once; dilute with 10 mL 0.9% NaCl; give over 2 minutes bp Route: IVP; Site: right antecubital; 10:02 Drug: Ondansetron IVP 4 mg IVP once; over 2 minutes Route: IVP; Site: right antecubital;bp 13:00 Drug: Thiamine IV 100 mg IV at bolus once Route: IV; Rate: bolus; Site: right bp antecubital; 13:10 Follow up: IV Status: Completed infusion iw 13:00 Drug: Banana Bag - (Multivitamin IV 1 amp, NS 0.9% IV 1000 ml, Thiamine IV 100 mg, bp foLIC Acid IVPB 1 mg) IV at 500 ml/hr once Route: IV; Rate: 500 ml/hr; Site: right antecubital; 16:04 Follow up: Response: No adverse reaction; IV Status: Completed infusion; IV Intake: bp 1000ml 13:30 Drug: Rocephin - Rocephin (cefTRIAXone) IVPB 2 grams IVPB once over 30 mins; (mix in bp 100 mL NS) Route: IVPB; Infused Over: 30 mins; Site: right antecubital; 14:00 Follow up: IV Status: Completed infusion iw 13:30 Drug: Zithromax IVPB 500 mg IVPB once over 1 hrs; mix in 250 mL NS Route: IVPB; Infused bp Over: 1 hrs; Site: right antecubital; 14:30 Follow up: IV Status: Completed infusion iw 13:30 Drug: Acetaminophen PO 1000 mg PO once Route: PO; bp 13:30 Drug: NS 0.9% IV 1000 ml IV at 1 bolus Per protocol; 1000 mL bolus Route: IV; Rate: 1 bp bolus; Site: right antecubital; 14:50 Follow up: IV Status: Completed infusion iw Disposition Summary: 06/07/24 12:42 Hospitalization Ordered Notes: Hospitalization Status: Inpatient Admission radha Provider: Yfn Weinberg cha Location: Telemetry/MedSurg (Inpatient) radha Condition: Fair radha Problem: new radha Symptoms: have improved radha Bed/Room Type: Standard [facility] Room Assignment: 223(06/07/24 16:32) bc6 Diagnosis - Syncope Near radha - Alcohol abuse radha - Vomiting radha - Diarrhea, unspecified radha - Weakness radha - Dehydration radha - Pneumonia due to other specified bacteria - RIGHT MID LUNG radha - Elevated white blood cell count radha - Sepsis, unspecified organism radha - Fever, unspecified radha Forms: - Medication Reconciliation Form radha - SBAR form radha - Leadership Thank You Letter radha Signatures: Dispatcher [employer] EDMS Martin Zimmerman MD MD cha Attema, Lee, FITNESS SPECIALIST-C FITNESS SPECIALIST-Cla1 Trent Medina, RN RN Marielena Thakkar bc6 Trinh Adam RN iw Corrections: (The following items were deleted from the chart) 08:50 08:49 Abdomen Limited+US.RAD.BRZ ordered. EDSC EDMS 16:32 12:42 radha bc6
--- NOTE | 2024-06-07 12:42 | ER ---
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 Coronavirus screen: bp At this time, the client does not indicate any symptoms associated with coronavirus-19. Ebola Screen: No symptoms or risks identified at this time. Initial Sepsis Screen: Does the patient meet any 2 criteria? No. Patient's initial sepsis screen is negative. Does the patient have a suspected source of infection? No. Patient's initial sepsis screen is negative. Risk Assessment: Do you want to hurt yourself or someone else? Patient reports no desire to harm self or others. Onset of symptoms is unknown. 08:59 Acuity: VIRAJ 3 bp 08:59 Method Of Arrival: Ambulatory bp Triage Assessment: 09:00 General: Appears in no apparent distress. Behavior is cooperative, appropriate for age, bp anxious. Pain: Complains of pain in abdomen. EENT: No deficits noted. Neuro: No deficits noted. Cardiovascular: No deficits noted. Respiratory: No deficits noted. GI: Reports epigastric pain. : No signs and/or symptoms were reported regarding the genitourinary system. Derm: No deficits noted. Musculoskeletal: No deficits noted. Historical: - Allergies: 09:00 No Known Allergies; bp - PMHx: 09:00 Anxiety; Gastric reflux; bp - Immunization history:: Adult Immunizations up to date. - Infectious Disease History:: Denies. - Social history:: Smoking status: unknown. Screenin:00 [facility] ED Fall Risk Assessment (Adult) History of falling in the last 3 months, bp including since admission No falls in past 3 months (0 pts) Confusion or Disorientation No (0 pts) Intoxicated or Sedated No (0 pts) Impaired Gait No (0 pts) Mobility Assist Device Used No (0 pt) Altered Elimination No (0 pt) Score/Fall Risk Level 0 - 2 = Low Risk Oriented to surroundings. Abuse screen: Denies threats or abuse. Denies injuries from another. Nutritional screening: No deficits noted. Tuberculosis screening: No symptoms or risk factors identified. Assessment: 09:00 General: Appears in no apparent distress. Behavior is cooperative, appropriate for age, bp anxious. 11:00 Reassessment: Patient appears in no apparent distress at this time. Patient is alert, bp oriented x 3, equal unlabored respirations, skin warm/dry/pink. 14:00 Reassessment: No changes from previously documented assessment. Patient is alert, bp oriented x 3, equal unlabored respirations, skin warm/dry/pink. 15:00 Reassessment: Patient appears in no apparent distress at this time. No changes from bp previously documented assessment. Patient is alert, oriented x 3, equal unlabored respirations, skin warm/dry/pink. 16:27 Reassessment: Patient appears in no apparent distress at this time. No changes from bp previously documented assessment. Patient is alert, oriented x 3, equal unlabored respirations, skin warm/dry/pink. 17:38 Reassessment: Patient appears in no apparent distress at this time. Patient and/or jb4 family updated on plan of care and expected duration. Pain level reassessed. Patient is alert, oriented x 3, equal unlabored respirations, skin warm/dry/pink. Vital Signs: 08:59 BP 123 / 77; Pulse 97; Resp 16; Temp 100.3; Pulse Ox 99% ; Weight 111.13 kg; Height 6 bp ft. 4 in. ; 11:30 BP 117 / 62; Pulse 78; Resp 16; Pulse Ox 98% ; bp 14:00 BP 124 / 73; Pulse 100; Resp 16; Pulse Ox 100% ; bp 16:00 BP 121 / 70; Pulse 95; Resp 16; Temp 98.2(O); Pulse Ox 98% on R/A; bp 08:59 Body Mass Index 29.82 (111.13 kg, 193.04 cm) bp ED Course: 08:44 Patient arrived in ED. im 08:47 Martin Zimmerman MD is Attending Physician. radha 08:59 Trent Medina, RN is Primary Nurse. bp 09:00 Triage completed. bp 09:00 Patient has correct armband on for positive identification. bp 09:24 US Abdomen Limited In Process Unspecified. EDMS 10:03 Initial lab(s) drawn, by starch factory laborer, sent to lab. EKG done, by ED staff, reviewed by bp Martin Zimmerman MD. Inserted saline lock: 20 gauge in right antecubital area, using aseptic technique. Blood collected. 10:37 XRAY Chest (1 view) In Process Unspecified. EDMS 10:48 CT Abd/Pelvis - IV Contrast Only In Process Unspecified. EDMS 12:40 Yfn Weinberg is Hospitalizing Provider. [facility] 12:41 CT Head Brain wo Cont In Process Unspecified. EDMS 12:45 CT Chest Wo Con In Process Unspecified. EDMS 17:38 No provider procedures requiring assistance completed. Patient admitted, IV remains in jb4 place. 17:38 Provided Education on: need for admit. jb4 Administered Medications: 10:02 Drug: NS 0.9% IV 1000 ml IV at 1 bolus Per protocol; 1000 mL bolus Route: IV; Rate: 1 bp bolus; Site: right antecubital; 11:30 Follow up: IV Status: Completed infusion iw 10:02 Drug: Famotidine IVP 20 mg IVP once; dilute with 10 mL 0.9% NaCl; give over 2 minutes bp Route: IVP; Site: right antecubital; 10:02 Drug: Ondansetron IVP 4 mg IVP once; over 2 minutes Route: IVP; Site: right antecubital;bp 13:00 Drug: Thiamine IV 100 mg IV at bolus once Route: IV; Rate: bolus; Site: right bp antecubital; 13:10 Follow up: IV Status: Completed infusion iw 13:00 Drug: Banana Bag - (Multivitamin IV 1 amp, NS 0.9% IV 1000 ml, Thiamine IV 100 mg, bp foLIC Acid IVPB 1 mg) IV at 500 ml/hr once Route: IV; Rate: 500 ml/hr; Site: right antecubital; 16:04 Follow up: Response: No adverse reaction; IV Status: Completed infusion; IV Intake: bp 1000ml 13:30 Drug: Rocephin - Rocephin (cefTRIAXone) IVPB 2 grams IVPB once over 30 mins; (mix in bp 100 mL NS) Route: IVPB; Infused Over: 30 mins; Site: right antecubital; 14:00 Follow up: IV Status: Completed infusion iw 13:30 Drug: Zithromax IVPB 500 mg IVPB once over 1 hrs; mix in 250 mL NS Route: IVPB; Infused bp Over: 1 hrs; Site: right antecubital; 14:30 Follow up: IV Status: Completed infusion iw 13:30 Drug: Acetaminophen PO 1000 mg PO once Route: PO; bp 13:30 Drug: NS 0.9% IV 1000 ml IV at 1 bolus Per protocol; 1000 mL bolus Route: IV; Rate: 1 bp bolus; Site: right antecubital; 14:50 Follow up: IV Status: Completed infusion iw Intake: 16:04 IV: 1000ml; Total: 1000ml. bp Outcome: 12:42 Decision to Hospitalize by Provider. radha 17:40 Admitted to Med/surg accompanied by nurse, room 223, iw 17:40 Condition: good 17:40 Discharge instructions given to patient, Instructed on the need for admit, 17:40 Patient left the ED. iw Signatures: Dispatcher [employer] EDMS Martin Zimmerman MD MD cha Williams, Irene, RN RN Samuel Alexander RN RN jbTrent Platt RN RN bp Mendoza, Itzel Corrections: (The following items were deleted from the chart) 16:36 16:00 BP 121 / 70; Pulse 95bpm; Resp 16bpm; Pulse Ox 98% RA; bp bp
[2024-06-07] MEDS: THIAMINE HCL 100 MG, FOLIC ACID 1 MG, MULTIVITAMINS INJ 10 ML in NA CHLORIDE 0.9% 1,000 ML IV ONE (13:00)
--- NOTE | 2024-06-07 13:01 | RAD REPORT ---
EXAMINATION: CT HEAD WITHOUT CONTRAST CLINICAL INDICATION: Male, 48 years old.SYNCOPE TECHNIQUE: Axial CT images from the skull base to the vertex without intravenous contrast. Coronal an d sagittal reformatted images were created from the data set. One or more of the following dose reduction techniques were used: Automated exposure control, adjustment of the mA and/or kV according to patient size, and/or iterative reconstruction. Unless otherwise specified, incidental findings do not require dedicated imaging follow-up. [id number]. COMPARISON: No prior exam. FINDINGS: INTRACRANIAL: No acute intracranial hemorrhage. No hydrocephalus. No mass effect or midline shift. No significant white matter disease. VASCULATURE: No visualized abnormalities in the arteries or dural venous sinuses. SCALP/SKULL: No significant soft tissue or osseous abnormalities. SINUSES: Mucosal thickening left maxillary sinus. IMPRESSION: No acute intracranial abnormality.
--- NOTE | 2024-06-07 13:03 | RAD REPORT ---
EXAMINATION: CT CHEST WITHOUT CONTRAST CLINICAL INDICATION: Male, 48 years old. Cough;Fever TECHNIQUE: Routine CT scan of the chest without intravenous contrast. One or more of the following do se reduction techniques were used: Automated exposure control, adjustment of the mA and/or kV according to patient size, and/or iterative reconstruction. Unless otherwise specified, incidental fi ndings do not require dedicated imaging follow-up. [id number]. COMPARISON: Same-day chest radiograph FINDINGS: LOWER NECK: Visualized thyroid gland and soft tissues are normal. LUNGS AND AIRWAYS: Irregular nodularity present in the anterior aspect of the right upper lobe consis tent with infection inflammation. PLEURA: No pleural effusion. No pneumothorax. Hemidiaphragms are normally positioned. MEDIASTINUM AND LYMPH NODES: No mediastinal mass or fluid collection. Normal size mediastinal, hilar, and axillary lymph nodes. THORACIC AORTA: Normal caliber and configuration. PULMONARY ARTERIES: Normal caliber. HEART: Normal heart size. No coronary calcifications.No pericardial effusion. OSSEOUS STRUCTURES AND CHEST WALL: Intact. UPPER ABDOMEN: No significant abnormalities. IMPRESSION: Irregular right upper lobe airspace disease corresponding with the chest x-ray abnormality and most c onsistent with infection/inflammation. Recommend follow-up in 6-8 week with chest radiograph to ensure resolution.
[2024-06-07] MEDS ORDERED: CEFTRIAXONE 1000 MG/VIAL ONE (13:30)
[2024-06-07] MEDS ORDERED: AZITHROMYCIN 500 MG INJ IVPB ONE (13:30)
[2024-06-07] MEDS ORDERED: THIAMINE 200 MG/2 ML INJ ONE (13:30)
[2024-06-07] MEDS ORDERED: NA CHLORIDE 0.9% 250 ML ONE (13:30)
--- NOTE | 2024-06-07 13:40 | P.HP ---
Certification for Inpatient Patient admitted to: Inpatient With expected LOS: >2 Midnights Patient will require the following post-hospital care: None Practitioner: I am a practitioner with admitting privileges, knowledge of patient current condition, hospital course, and medical plan of care. Services: Services provided to patient in accordance with Admission requirements found in Title 42 Section 412.3 of the Code of Federal Regulations Patient History Date of Service: 06/07/24 Primary Care Provider: Bryan Sanabria Reason for admission: pneumonia History of Present Illness: Mr. Carvalho is a 48-year-old gentleman with a past medical history of GERD and anxiety. 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 He admits to 2 vodka drinks per night. At 3:00 this morning, he woke up with headache, nausea, vomiting, chills and abdominal tightness. He states he also has pressure to his left maxillary sinus and notes that even his teeth hurt. He presented to the emergency department and was found to have a WBC of 18.7 with 90% neutrophils, Chem-7 unremarkable, direct bili 0.3, BNP 183, a gallbladder ultrasound and CT abdomen was performed second to his abdominal pain, nausea, and vomiting with recent weight loss of 23 pounds after semaglutide initiation. Resulting in unremarkable exams. However, chest x-ray shows "irregular nodularity in the right midlung is new from prior. This is of uncertain etiology. Possibly an acute infectious or inflammatory process." Subsequently a CT of his chest was performed with findings of "irregular right upper lobe airspace disease corresponding with a chest x-ray abnormality and most consistent with infection/inflammation. Recommend follow-up in 6 to 8 weeks with chest radiograph to ensure resolution." Mr. Carvalho was apprised of these findings and we will admit him for IV antibiotics and IV fluids. Allergies No Known Allergies Allergy (Unverified 01/18/12 14:58) Home medications list reviewed: Yes (Propranolol prn, protonix, and semaglutide) - Past Medical/Surgical History Has patient received pneumonia vaccine in the past: No Diabetic: No -: Gastritis -: Regular alcohol intake -: Anxiety Past Surgical History: Patient denies surgical history Psychosocial/ Personal History: Lives at home with his . 2 vodka drinks per night. Started semaglutide in February resulting in 23 pound weight loss - Family History Family History: Reviewed- Non-Contributory - Social History Smoking Status: Never smoker Alcohol use: Yes CD- Drugs: No Caffeine use: Yes Place of Residence: Home Review of Systems 10-point ROS is otherwise unremarkable General: Fever, Chills, Malaise Eyes: Unremarkable ENT: Other (Pain in left cheek radiating to teeth) Respiratory: Cough, Shortness of Breath Cardiovascular: Unremarkable Gastrointestinal: Nausea, Vomiting, Abdominal Pain, Other (Denies constipation) Genitourinary: Unremarkable Musculoskeletal: Unremarkable Integumentary: Unremarkable Neurological: Other (Headache) Lymphatics: Unremarkable Physical Examination - Vital Signs Pulse: 100 Respirations: 18 - Physical Exam General: Alert, In no apparent distress, Oriented x3, Cooperative HEENT: Other (tender right maxillary sinus) Neck: Supple Respiratory: Normal air movement Cardiovascular: No edema, Normal pulses, Regular rate/rhythm Capillary refill: <2 Seconds Gastrointestinal: Normal bowel sounds, Tenderness (mild generalized "soreness") Musculoskeletal: No clubbing, No swelling Integumentary: No rashes, Other (Mild pallor, appears dry) Neurological: Normal speech, Normal tone, Normal affect Lymphatics: No axilla or inguinal lymphadenopathy External genitalia: Deferred Rectal: Deferred - Studies Laboratory Data (last 24 hrs) 06/07/24 06/07/24 06/07/24 10:00 10:00 10:00 WBC 18.70 H Hgb 15.5 Hct 45.4 Plt Count 303 PT 12.2 INR 1.09 Sodium 139 Potassium 3.6 BUN 11 Creatinine 1.05 Glucose 115 H Magnesium 1.7 Total Bilirubin 0.9 AST 20 ALT 33 Alkaline Phosphatase 130 H Lipase 35 Assessment and Plan - Plan Acute Pneumonia abdominal pain with gastritis/esophagitis Sinusitis Dehydration Plan: Continue IV antibiotics blood cultures Repeat chest x-ray Neb treatments every 4 to 6 hours as needed O2 per protocol Continue with hydration Monitor and trend labs including CBC, CMP, and lactate as needed Regular ETOH use/misuse Valium 5mg IV TID GI and DVT prophylaxis - Advance Directives Does patient have a Living Will: No Does patient have a Durable POA for Healthcare: No
[2024-06-07] MEDS ORDERED: SODIUM CHLORIDE 0.9% 10ML INJ IV PRN (13:42)
[2024-06-07] MEDS ORDERED: HYDROCODONE/CHLORPHEN 5 ML/OSYR PO PRN (13:42)
[2024-06-07] MEDS ORDERED: ACETAMINOPHEN 325 MG TABLET PO PRN (13:42)
[2024-06-07] MEDS ORDERED: DIAZEPAM 5 MG TABLET PO PRN (13:59)
[2024-06-07] MEDS: NA CHLORIDE 0.9% 1,000 ML IV SCH (14:00)
[2024-06-07 14:17] LABS: SARS-CoV-2 Antigen CONTROL BLUE LINE VIS/BG OK; SARS-CoV-2 Antigen Rapid Res Negative (Negative)
[2024-06-07] MEDS: ENOXAPARIN 40 MG/0.4 ML SQ SCH (15:00)
--- NOTE | 2024-06-07 16:51 | EKG ---
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
--- NOTE | 2024-06-07 16:51 | EKG ---
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
[2024-06-07 18:15] VITALS: BMI 29.8
[2024-06-07] MEDS: IPRATROPIUM BROM 0.5MG/2.5ML NEB SCH (19:05)
[2024-06-07] MEDS: ALBUTEROL 2.5 MG/3 ML NEB SOL NEB SCH (19:05)
[2024-06-07] MEDS: PANTOPRAZOLE 40 MG INJ IVP SCH (20:14)
[2024-06-07] MEDS: CEFTRIAXONE 1,000 MG in NA CHLORIDE 0.9% 50 ML IVPB SCH (20:15)
[2024-06-07 22:00] LABS: Specific Gravity 1.005 (1.005-1.030); Urine Bilirubin NEGATIVE (Negative); Urine Blood Negative (Negative); Urine Clarity Clear (Clear); Urine Color Colorless (Yellow); Urine Glucose NEGATIVE (Negative); Urine Ketones NEGATIVE (Negative); Urine Microscopic Reflex YN NO UMIC; Urine Nitrite NEGATIVE (Negative); Urine Protein NEGATIVE (Negative); Urine Urobilinogen Normal (Normal); Urine pH 6.5 (5.0-7.0)
[2024-06-08 07:37] LABS: Absolute Lymphocytes (CBC) 1.7 K/uL (0.7-4.9); Absolute Monocytes 0.7 K/uL (0.1-1.3); Absolute Neutrophil 10.4 K/uL (1.8-8.0); Basophils % 0.3 % (0-1.3); Eosinophils % 0.3 % (0-4.4); Hematocrit 38.7 % (39.6-49.0); Lymphocytes % 13.2 % (15.3-44.8); MCH 29.7 pg (27.0-35.0); MCHC 33.6 g/dL (32.0-36.0); MCV 88.4 fL (80-100); MPV 7.5 fL (7.6-11.3); Monocytes % 5.6 % (3.3-12.3); Neutrophils % 80.6 % (41.7-73.7); Platelets 248 thou/uL (152-406); RBC Red Blood Cell Count 4.38 M/uL (4.33-5.43); Red Cell Distribution Width 13.5 % (12.1-15.2)
[2024-06-08 07:50] LABS: ALT/SGPT 23 U/L (16-61); Albumin 2.8 g/dL (3.4-5.0); Albumin/Globulin Ratio 0.9 (1.1-1.8); Alkaline Phosphatase 92 U/L (45-117); Anion Gap 6.7 mEq/L (5.0-15.0); BUN Blood Urea Nitrogen 7 mg/dL (7-18); Bicarbonate 29 mEq/L (21-32); Bilirubin Total 0.5 mg/dL (0.2-1.0); Globulin 3.2 g/dL (2.3-3.5); Glomerular Filtration Rate 103 ml/min (=/>90); Glucose Level 111 mg/dL (74-106); HDL Cholesterol 51 mg/dL (40-60); LDL Cholesterol, Calculated 76 mg/dL (<130); LDL Cholesterol,Calc NonReport 76; Potassium 3.7 mEq/L (3.5-5.1); Sodium Level 142 mEq/L (136-145)
[2024-06-08 07:52] LABS: AST/SGOT < 10 U/L (15-37)
[2024-06-08 09:00] VITALS: BP 130/60; TEMP 98.2
[2024-06-08] MEDS: POTASSIUM CL SA 10 MEQ TAB PO ONE (09:14)
[2024-06-08] MEDS: AZITHROMYCIN IV 500 MG in NA CHLORIDE 0.9% 250 ML IVPB SCH (09:15)
--- NOTE | 2024-06-08 10:11 | P.DS ---
Admission Date: 06/07/24 Discharge Date: 06/08/24 Primary Care Provider: Bryan Sanabria Disposition: ROUTINE DISCHARGE Discharge Condition: GOOD Reason for Admission: pneumonia Brief History of Present Illness: Mr. Carvalho is a 48-year-old gentleman with a past medical history of GERD and anxiety. 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 He admits to 2 vodka drinks per night. At 3:00 this morning, he woke up with headache, nausea, vomiting, chills and abdominal tightness. He states he also has pressure to his left maxillary sinus and notes that even his teeth hurt. He presented to the emergency department and was found to have a WBC of 18.7 with 90% neutrophils, Chem-7 unremarkable, direct bili 0.3, BNP 183, a gallbladder ultrasound and CT abdomen was performed second to his abdominal pain, nausea, and vomiting with recent weight loss of 23 pounds after semaglutide initiation. Resulting in unremarkable exams. However, chest x-ray shows "irregular nodularity in the right midlung is new from prior. This is of uncertain etiology. Possibly an acute infectious or inflammatory process." Subsequently a CT of his chest was performed with findings of "irregular right upper lobe airspace disease corresponding with a chest x-ray abnormality and most consistent with infection/inflammation. Recommend follow-up in 6 to 8 weeks with chest radiograph to ensure resolution." Mr. Carvalho was apprised of these findings and we will admit him for IV antibiotics and IV fluids. Hospital Course: Hospital course: IV hydration given for dehydration and IV antibiotics given for pneumonia and sinusitis Assessment: Nausea and vomiting with dehydration. Improved. Pneumonia without oxygen requirement and decreasing white blood cell count. Will transition to oral antibiotics. New prescriptions: Cefuroxime 500mg by mouth twice daily x 10 days #20 Azithromycin 500mg by mouth once daily x 5 days #5 May take Tylenol, ibuprofen as directed at home for pain, do not take on empty stomach Continue home medicines as previously prescribed GOAL: Clear understanding of disease process Diet: regular Activity: ad bayron INSTRUCTIONS: Physician Discharge Instructions: Okay to DC IV and DC home Follow-up with primary care provider in 1 to 2 weeks Please call the inpatient unit for any questions or concerns regarding hospital stay Return to the ER for worsening symptoms Vital Signs/Physical Exam: Temp Pulse Resp BP Pulse Ox 98.2 F 78 18 130/60 95 06/08/24 08:00 06/08/24 08:00 06/08/24 08:00 06/08/24 08:00 06/08/24 08:00 General: Alert, In no apparent distress, Oriented x3 HEENT: Atraumatic, Normocephalic Neck: Supple Respiratory: Clear to auscultation bilaterally, Normal air movement, Other (+cough) Cardiovascular: No edema, Regular rate/rhythm, Normal S1 S2 Capillary refill: <2 Seconds Gastrointestinal: Soft and benign Musculoskeletal: No clubbing Integumentary: No rashes Neurological: Normal speech, Normal tone Lymphatics: No axilla or inguinal lymphadenopathy External genitalia: Deferred Rectal: Deferred Laboratory Data at Discharge: WBC 12.90 thou/uL (4.3-10.9) H 06/08/24 07:19 Hgb 13.0 g/dL (13.6-17.9) L D 06/08/24 07:19 Hct 38.7 % (39.6-49.0) L 06/08/24 07:19 Plt Count 248 thou/uL (152-406) 06/08/24 07:19 PT 12.2 SECONDS (9.4-12.5) 06/07/24 10:00 INR 1.09 06/07/24 10:00 Sodium 142 mEq/L (136-145) 06/08/24 07:19 Potassium 3.7 mEq/L (3.5-5.1) 06/08/24 07:19 BUN 7 mg/dL (7-18) 06/08/24 07:19 Creatinine 0.91 mg/dL (0.70-1.30) 06/08/24 07:19 Glucose 111 mg/dL (74-106) H 06/08/24 07:19 Magnesium 2.0 mg/dL (1.6-2.4) 06/08/24 07:19 Total Bilirubin 0.5 mg/dL (0.2-1.0) 06/08/24 07:19 AST < 10 U/L (15-37) L 06/08/24 07:19 ALT 23 U/L (16-61) 06/08/24 07:19 Alkaline Phosphatase 92 U/L (45-117) D 06/08/24 07:19 Triglycerides 74 mg/dL (<150) 06/08/24 07:19 Cholesterol 142 mg/dL (<200) 06/08/24 07:19 HDL Cholesterol 51 mg/dL (40-60) 06/08/24 07:19 Cholesterol/HDL Ratio 2.78 06/08/24 07:19 Lipase 35 U/L (13-75) 06/07/24 10:00 Home Medications: Azithromycin 500 mg PO DAILY 5 Days #5 tab 06/08/24 Cefuroxime Axetil [Cefuroxime] 500 mg PO BID #20 tab 06/08/24 New Medications: Azithromycin 500 mg PO DAILY 5 Days #5 tab Cefuroxime Axetil [Cefuroxime] 500 mg PO BID #20 tab Physician Discharge Instructions: Hospital course: IV hydration given for dehydration and IV antibiotics given for pneumonia and sinusitis Assessment: Nausea and vomiting with dehydration. Improved. Pneumonia without oxygen requi rement and decreasing white blood cell count. Will transition to oral antibiotics. New prescriptions: Cefuroxime 500mg by mouth twice daily x 10 days #20 Azithromycin 500mg by mouth once daily x 5 days #5 May take Tylenol, ibuprofen as directed at home for pain, do not take on empty stomach Continue home medicines as previously prescribed GOAL: Clear understanding of disease process Diet: regular Activity: ad bayron INSTRUCTIONS: Physician Discharge Instructions: Okay to DC IV and DC home Follow-up with primary care provider in 1 to 2 weeks Please call the inpatient unit for any questions or concerns regarding hospital stay Return to the ER for worsening symptoms Diet: Regular Activity: Ad bayron Followup: Bryan Sanabria PAC [Primary Care Provider] -
[2024-06-08 10:54] VITALS: O2SAT 96
== END 2024-06-08 11:19 | disposition home or self-care (01) | DRG 871 ==
LOC: ER 08:41 → ERHOLD 13:42 → 2ND 16:58
PROVIDERS: ADMIT Internal Medicine; ATTEND Internal Medicine Sleep Medicine
DX: A41.9 Sepsis, unspecified organism (principal); J18.9 Pneumonia, unspecified organism; F41.9 Anxiety disorder, unspecified; F10.10 Alcohol abuse, uncomplicated; E86.0 Dehydration; K21.9 Gastro-esophageal reflux disease without esophagitis; K29.70 Gastritis, unspecified, without bleeding; K20.90 Esophagitis, unspecified without bleeding; J32.9 Chronic sinusitis, unspecified; Z11.52 Encounter for screening for COVID-19
CPT/HCPCS: 36415; 70450; 71045; 71250; 74177; 76705; 80048; 80053; 80061; 80076; 81003; 83605; 83690; 83735; 83880; 84484; 85025; 85610; 87040; 87804; 87811; 93005; 94640; 96361; 96365; 96367; 96375; 99285; J0696; J1650; J2405; J2470; J3411; J7030; J7050; J7613; J7644; Q9967